=== PATIENT | male | born 1995 | race African-American/Black ===

== ENCOUNTER → 2017-07-11 | Outpatient (REF) | payer OTHER | LOC: M LAB REF 12:53 | DX: R05 Cough (principal) ==

== ENCOUNTER → 2017-08-01 | Outpatient (CLI) | payer OTHER ==
[~2017-08-01] MED LIST: METHACHOLINE KIT (J7674) INH
== END ==
LOC: M CARPUL 09:25
DX: R05 Cough (principal)